=== PATIENT | female | born 1955 | race African-American/Black ===

== ENCOUNTER 2021-04-30 04:42 | Emergency (ER) | payer MEDICARE, MEDICAID ==
[~2021-04-30] VITALS: Ht 167.6 cm; Wt 99.8 kg
[2021-04-30] MEDS ORDERED: SODIUM CHLORIDE 0.9% 500 ML IVB ONE (07:45)
[2021-04-30] MEDS ORDERED: LORazepam 2MG/ML-1ML VIAL IV ONE (07:45)
[2021-04-30] MEDS ORDERED: SODIUM CHLORIDE 0.9% 1,000 ML IV ONE (07:45)
[2021-04-30 08:02] LABS: Basophils # (auto) 0.1 10 ^3/uL (0-0.2); Basophils % (auto) 0.7 % (0.0-2.0); Eosinophils # (auto) 0.1 10 ^3/uL (0-0.8); Eosinophils % (auto) 1.4 % (0.0-7.0); Hematocrit 41.7 % (36.0-46.0); Hemoglobin 14.1 g/dL (12.2-16.2); Lymphocytes % (auto) 32.3 % (10.0-50.0); Mean Corpuscular Hemoglobin 32.6 pg (28.0-32.0); Mean Corpuscular Hgb Conc. 33.9 g/dL (32.0-36.0); Mean Corpuscular Volume 96.1 fL (80.0-100.0); Monocytes # (auto) 0.7 10 ^3/uL (0-1.3); Monocytes % (auto) 7.2 % (0.0-12.0); Neutrophils # (auto) 5.3 10 ^3/uL (1.6-8.6); Neutrophils % (auto) 58.4 % (37.0-80.0); Nucleated Red Blood Cells % 0.1 %; Red Blood Cells 4.34 10^6/uL (4.0-5.20); White Blood Cell 9.2 10^3/uL (4.4-10.8)
[2021-04-30 08:15] LABS: Albumin 3.6 g/dL (3.4-5.0); Anion Gap 10 (5-15); Blood Urea Nitrogen 17 mg/dL (7-18); Carbon Dioxide 19 mmol/L (21-32); Chloride 114 mmol/L (98-107); Glucose 98 mg/dL (74-106); Magnesium 2.4 mg/dL (1.6-2.6); Potassium 3.6 mmol/L (3.5-5.1); Sodium 143 mmol/L (136-145)
[2021-04-30 08:22] LABS: Alanine Aminotransferase 23 U/L (13-56); Alkaline Phosphatase 114 U/L (45-117); Aspartate Aminotransferase 13 U/L (15-37); Bilirubin, Total 0.8 mg/dL (0.2-1.0); GFR African American 111 mL/min; GFR Non-African American 92 mL/min; Total Protein 7.7 g/dL (6.4-8.2)
[2021-04-30 11:00] VITALS: BP 152/80
[2021-04-30] MEDS ORDERED: FUROSEMIDE 40 MG/4 ML VIAL IV ONE (11:45)
[2021-04-30] MEDS ORDERED: SPIRONOLACTONE 25 MG TAB PO ONE (11:45)
== END 2021-04-30 12:12 | disposition left against medical advice (07) ==
LOC: ER 04:42 → EDBD 04:42 → ER 12:12
DX: G40.909 Epilepsy, unspecified, not intractable, without status epilepticus (principal); J90 Pleural effusion, not elsewhere classified; I10 Essential (primary) hypertension; R09.89 Other specified symptoms and signs involving the circulatory and respiratory systems; I11.0 Hypertensive heart disease with heart failure; I50.9 Heart failure, unspecified; J44.9 Chronic obstructive pulmonary disease, unspecified; Z20.822 Contact with and (suspected) exposure to COVID-19
CPT/HCPCS: 36415; 70450; 71045; 80053; 80320; 83735; 83880; 84443; 84484; 85025; 87426; 93005; 96365; 96375; 99285; J1940; J1953; J2060; J7060

== ENCOUNTER 2021-10-17 04:12 | Inpatient (IN) | payer MEDICARE, MEDICAID ==
[~2021-10-17] VITALS: Ht 172.7 cm; Wt 123.3 kg
[2021-10-17] MEDS ORDERED: methylPREDNISolone SOD SUCC 125 MG/2 ML VL IV ONE ×2 (05:30→11:45)
[2021-10-17 06:13] LABS: Hematocrit 43.6 % (36.0-46.0); Hemoglobin 14.9 g/dL (12.2-16.2); Mean Corpuscular Hemoglobin 32.7 pg (28.0-32.0); Mean Corpuscular Hgb Conc. 34.1 g/dL (32.0-36.0); Mean Corpuscular Volume 96.1 fL (80.0-100.0); Red Blood Cells 4.54 10^6/uL (4.0-5.20); Red Cell Distribution Width 13.6 % (11.8-14.3); White Blood Cell 4.4 10^3/uL (4.4-10.8)
[2021-10-17 06:14] LABS: Urine Bacteria NONE SEEN /hpf (None Seen); Urine Blood TRACE /uL (Negative); Urine Mucus FEW (None Seen); Urine Specific Gravity 1.027 (1.001-1.035); Urine WBC 1 /hpf (0 - 5)
[2021-10-17 06:27] LABS: Band Neutrophils % (manual) 0; Basophils % (manual) 0 (0.0-2.0); Blast Cells 0; Metamyelocytes % 0; Myelocytes % 0; Promyelocytes % 0
[2021-10-17] MEDS ORDERED: ALBUTEROL SULF 2.5 MG/0.5ML(0.5%) NEB SOLN NEB ONE (07:45)
[2021-10-17] MEDS ORDERED: IPRATROPIUM BROM 0.5 MG/2.5ML INH SOL NEB ONE ×2 (07:45→11:45)
[2021-10-17 07:59] LABS: Albumin 3.6 g/dL (3.4-5.0); Calcium 9.2 mg/dL (8.5-10.1)
[2021-10-17 08:01] LABS: BUN/Creatinine Ratio 19.5
[2021-10-17 08:05] LABS: Total Protein 7.6 g/dL (6.4-8.2)
[2021-10-17 08:12] LABS: Eosinophils % (manual) 3 (0-7); Lymphocytes % (manual) 21 (10.0-50.0); Monocytes % (manual) 13 (0-12)
[2021-10-17 08:13] LABS: Reactive Lymphocytes 12
[2021-10-17] MEDS ORDERED: cefTRIAXone 1GM/50ML D5W 50 ML IV ONE (09:15)
[2021-10-17] MEDS ORDERED: AZITHROMYCIN 500MG/ 250ML 250 ML IV ONE (09:15)
[2021-10-17] MEDS ORDERED: MORPHINE SULFATE INJECTION 2 MG/ML SYRG IV PRN ×2 (10:45→13:15)
[2021-10-17] MEDS ORDERED: NITROGLYCERIN 0.4 MG SL TAB SL PRN (10:45)
[2021-10-17] MEDS ORDERED: MONTELUKAST SODIUM 10 MG TAB PO ONE ×2 (11:45→13:15)
[2021-10-17] MEDS ORDERED: ONDANSETRON HCL 4 MG/2 ML VIAL IV PRN ×2 (11:45→13:15)
[2021-10-17] MEDS ORDERED: hydrALAZINE HCL 20 MG/ML VL IV PRN ×2 (11:45→13:15)
[2021-10-17] MEDS ORDERED: HYDROcodone-ACET 5/325MG TAB PO ONE ×2 (11:45→13:15)
[2021-10-17] MEDS ORDERED: BUDESONIDE (INHALATION) 0.5 MG/2 ML NEB NEB ONE (11:45)
[2021-10-17] MEDS: LORazepam 0.5 MG TAB PO PRN ×2 (13:11→22:30)
[2021-10-17] MEDS ORDERED: BENAZEPRIL HCL 10 MG TAB PO ONE (13:15)
[2021-10-17] MEDS ORDERED: DOCUSATE SOD 100 MG CAP PO PRN (13:15)
[2021-10-17] MEDS ORDERED: NIFEdipine ER 30 MG TAB PO ONE (13:15)
[2021-10-17] MEDS ORDERED: LORazepam 0.5 MG TAB PO PRN (13:15)
[2021-10-17] MEDS ORDERED: HYDROcodone-ACET 5/325MG TAB PO PRN (13:15)
[2021-10-17] MEDS ORDERED: THIAMINE 100mg/ml INJ (200mg/2ml VIAL) IV ONE (13:30)
[2021-10-17] MEDS ORDERED: MULTIPLE VITAMINS W/ MINERALS TAB PO ONE (13:30)
[2021-10-17] MEDS ORDERED: PANTOPRAZOLE 40 MG/10 ML VIAL INJ IV ONE (13:30)
[2021-10-17] MEDS ORDERED: FOLIC ACID 1 MG TAB PO ONE (13:30)
[2021-10-17] MEDS: IPRATROPIUM BROM 0.5 MG/2.5ML INH SOL NEB SCH ×4 (14:53→22:19)
[2021-10-17] MEDS: ALBUTEROL SULF 2.5 MG/0.5ML(0.5%) NEB SOLN NEB SCH ×4 (14:53→22:19)
[2021-10-17] MEDS: ACETYLCYSTEINE 10 %(100MG/ML) SOL 4ML NEB SCH ×2 (14:53→18:56)
[2021-10-17] MEDS ORDERED: LEVE500T32 PO (15:10)
[2021-10-17] MEDS ORDERED: FURO1TAB31 PO (15:10)
[2021-10-17] MEDS ORDERED: ALBU2TAB4 PO (15:10)
[2021-10-17] MEDS ORDERED: LOSA25TA38 PO (15:10)
[2021-10-17] MEDS ORDERED: LORA0.5T20 PO (15:12)
[2021-10-17] MEDS ORDERED: CITA-73 PO (15:12)
[2021-10-17] MEDS ORDERED: LATA0.0019 EACHEYE (15:12)
[2021-10-17] MEDS ORDERED: BRIM0.159 EACHEYE (15:12)
[2021-10-17] MEDS ORDERED: IPRIH INH (15:12)
[2021-10-17] MEDS: methylPREDNISolone SOD SUCC 40 MG/ML VL IV SCH ×2 (15:14→22:45)
[2021-10-17 17:48] VITALS: BP 159/98
[2021-10-17] MEDS: FUROSEMIDE 20 MG/2 ML VIAL IV SCH (17:51)
[2021-10-17] MEDS ORDERED: FUROSEMIDE 20 MG/2 ML VIAL IV SCH (18:00)
[2021-10-17] MEDS: HYDROcodone-ACET 5/325MG TAB PO PRN (18:02)
[2021-10-17 18:39] LABS: Magnesium 2.3 mg/dL (1.6-2.6)
[2021-10-17 18:56] LABS: INR 1.05 (0.9-1.15); Partial Thromboplastin Time 28.2 sec (23.6-33.0)
[2021-10-17 20:43] VITALS: BP 159/98
[2021-10-17] MEDS: LATANOPROST 0.005 % OPTH(EYE) SOL 2.5ML EACHEYE SCH (21:11)
[2021-10-17] MEDS: MONTELUKAST SODIUM 10 MG TAB PO SCH (21:12)
[2021-10-17] MEDS: levETIRAcetam 500 MG TAB PO SCH (21:12)
[2021-10-17] MEDS: ATORVASTATIN 20 MG TAB PO SCH (21:12)
[2021-10-17 22:00] VITALS: BP 155/89
[2021-10-17] MEDS: BRIMONIDINE 0.2% OPTH Soln 5ml EACHEYE SCH (22:00)
[2021-10-17] MEDS ORDERED: ATORVASTATIN 20 MG TAB PO SCH (22:00)
[2021-10-17] MEDS ORDERED: MONTELUKAST SODIUM 10 MG TAB PO SCH (22:00)
[2021-10-17] MEDS: BUDESONIDE (INHALATION) 0.5 MG/2 ML NEB NEB SCH (22:19)
[2021-10-18] MEDS: ALBUTEROL SULF 2.5 MG/0.5ML(0.5%) NEB SOLN NEB SCH ×6 (02:20→22:37)
[2021-10-18] MEDS: IPRATROPIUM BROM 0.5 MG/2.5ML INH SOL NEB SCH ×6 (02:20→22:37)
[2021-10-18 05:00] VITALS: BP 131/75
[2021-10-18 05:55] LABS: Basophils # (auto) 0 10 ^3/uL (0-0.2); Basophils % (auto) 0.1 % (0.0-2.0); Eosinophils # (auto) 0 10 ^3/uL (0-0.8); Hematocrit 41.1 % (36.0-46.0); Lymphocytes # (auto) 1.3 10 ^3/uL (0.4-5.4); Lymphocytes % (auto) 17.8 % (10.0-50.0); Mean Corpuscular Hemoglobin 32.3 pg (28.0-32.0); Mean Corpuscular Volume 94.8 fL (80.0-100.0); Monocytes # (auto) 0.4 10 ^3/uL (0-1.3); Monocytes % (auto) 5.9 % (0.0-12.0); Neutrophils # (auto) 5.5 10 ^3/uL (1.6-8.6); Neutrophils % (auto) 76.2 % (37.0-80.0); Nucleated Red Blood Cells % 0.2 %; Red Blood Cells 4.34 10^6/uL (4.0-5.20); Red Cell Distribution Width 13.2 % (11.8-14.3); White Blood Cell 7.3 10^3/uL (4.4-10.8)
[2021-10-18 06:09] LABS: INR 1.05 (0.9-1.15)
[2021-10-18 06:15] LABS: Potassium 4.1 mmol/L (3.5-5.1)
[2021-10-18 06:21] LABS: Albumin 3.3 g/dL (3.4-5.0); BUN/Creatinine Ratio 20.4; Bilirubin, Total 0.6 mg/dL (0.2-1.0); CRP High Sensitivity 0.59 mg/dL (< 0.3); Calcium 8.6 mg/dL (8.5-10.1); Magnesium 2.1 mg/dL (1.6-2.6); Phosphorus 2.2 mg/dL (2.5-4.90); Total Protein 7.2 g/dL (6.4-8.2)
[2021-10-18] MEDS: LORazepam 0.5 MG TAB PO PRN ×2 (06:21→14:24)
[2021-10-18] MEDS: methylPREDNISolone SOD SUCC 40 MG/ML VL IV SCH ×3 (06:30→21:56)
[2021-10-18] MEDS: FUROSEMIDE 20 MG/2 ML VIAL IV SCH ×2 (06:30→17:25)
[2021-10-18] MEDS: BUDESONIDE (INHALATION) 0.5 MG/2 ML NEB NEB SCH ×2 (07:44→20:19)
[2021-10-18] MEDS: ACETYLCYSTEINE 10 %(100MG/ML) SOL 4ML NEB SCH ×3 (07:45→20:01)
[2021-10-18 09:00] VITALS: BP_SYST 111; BP_SYST 129; BP_DIAS 60; BP_DIAS 70
[2021-10-18] MEDS ORDERED: MULTIPLE VITAMINS W/ MINERALS TAB PO SCH (10:00)
[2021-10-18] MEDS ORDERED: ENOXAPARIN SOD 40 MG/0.4 ML SYRINGE SC SCH (10:00)
[2021-10-18] MEDS ORDERED: CYANOCOBALAMIN 500 MCG TAB PO SCH (10:00)
[2021-10-18] MEDS ORDERED: BENAZEPRIL HCL 10 MG TAB PO SCH (10:00)
[2021-10-18] MEDS ORDERED: PANTOPRAZOLE 40 MG/10 ML VIAL INJ IV SCH (10:00)
[2021-10-18] MEDS ORDERED: FOLIC ACID 1 MG TAB PO SCH (10:00)
[2021-10-18] MEDS ORDERED: ASPirin 81 mg TAB PO SCH (10:00)
[2021-10-18] MEDS: AZITHROMYCIN 500MG/ 250ML 250 ML IV SCH (10:42)
[2021-10-18] MEDS: levETIRAcetam 500 MG TAB PO SCH ×2 (10:42→21:56)
[2021-10-18] MEDS: CHOLECALCIFEROL (VITD3) 2,000 UNIT CAP/TAB PO SCH (10:43)
[2021-10-18] MEDS: THIAMINE HCL 100 MG TAB PO SCH (10:43)
[2021-10-18] MEDS: NIFEdipine ER 30 MG TAB PO SCH (10:44)
[2021-10-18] MEDS: ASPirin 81 mg TAB PO SCH (10:45)
[2021-10-18] MEDS: BRIMONIDINE 0.2% OPTH Soln 5ml EACHEYE SCH ×2 (10:54→22:00)
[2021-10-18] MEDS: ENOXAPARIN SOD 40 MG/0.4 ML SYRINGE SC SCH (10:55)
[2021-10-18] MEDS: HYDROcodone-ACET 5/325MG TAB PO PRN (11:30)
[2021-10-18] MEDS: PROMETHAZINE-DM 5 ML ORAL SYRUP PO PRN ×2 (11:30→22:00)
[2021-10-18] MEDS: LACTULOSE 20Gm/30ML SOLN PO PRN (12:59)
[2021-10-18 13:00] VITALS: BP 130/65
[2021-10-18 13:10] LABS: Amphetamine Screen, Urine NEGATIVE (NEGATIVE); Barbiturate Scree,Urine NEGATIVE (NEGATIVE); Benzodiazephine Screen, Urine NEGATIVE (NEGATIVE); Cannabinoid Screen, Urine POSITIVE (NEGATIVE); Cocaine Screen, Urine NEGATIVE (NEGATIVE); Opiate Scree,Urine POSITIVE (NEGATIVE); Phencyclidine Screen, Urine NEGATIVE (NEGATIVE)
[2021-10-18] MEDS ORDERED: cefTRIAXone 1GM/50ML D5W 50 ML IV ONE (15:00)
[2021-10-18 17:00] VITALS: BP 123/63
[2021-10-18] MEDS: FAMOTIDINE 20 MG TAB PO SCH (21:57)
[2021-10-18] MEDS: MONTELUKAST SODIUM 10 MG TAB PO SCH (21:57)
[2021-10-18] MEDS: ATORVASTATIN 20 MG TAB PO SCH (21:57)
[2021-10-18 22:00] VITALS: BP 116/58
[2021-10-18] MEDS: LATANOPROST 0.005 % OPTH(EYE) SOL 2.5ML EACHEYE SCH (22:13)
[2021-10-19] MEDS: IPRATROPIUM BROM 0.5 MG/2.5ML INH SOL NEB SCH ×6 (03:02→21:52)
[2021-10-19] MEDS: ALBUTEROL SULF 2.5 MG/0.5ML(0.5%) NEB SOLN NEB SCH ×6 (03:02→21:51)
[2021-10-19 05:00] VITALS: BP 131/70
[2021-10-19 05:12] LABS: Basophils # (auto) 0 10 ^3/uL (0-0.2); Basophils % (auto) 0.3 % (0.0-2.0); Eosinophils # (auto) 0 10 ^3/uL (0-0.8); Hematocrit 41.1 % (36.0-46.0); Hemoglobin 13.6 g/dL (12.2-16.2); Lymphocytes # (auto) 1.5 10 ^3/uL (0.4-5.4); Lymphocytes % (auto) 13.5 % (10.0-50.0); Mean Corpuscular Hemoglobin 31.4 pg (28.0-32.0); Mean Corpuscular Volume 95.1 fL (80.0-100.0); Monocytes # (auto) 0.6 10 ^3/uL (0-1.3); Monocytes % (auto) 5.7 % (0.0-12.0); Neutrophils # (auto) 9.1 10 ^3/uL (1.6-8.6); Neutrophils % (auto) 80.5 % (37.0-80.0); Nucleated Red Blood Cells % 0.1 %; Red Blood Cells 4.32 10^6/uL (4.0-5.20); Red Cell Distribution Width 13.4 % (11.8-14.3); White Blood Cell 11.3 10^3/uL (4.4-10.8)
[2021-10-19] MEDS: LORazepam 0.5 MG TAB PO PRN ×2 (05:26→13:26)
[2021-10-19 05:37] LABS: BUN/Creatinine Ratio 34.5; Calcium 9.1 mg/dL (8.5-10.1); Potassium 3.8 mmol/L (3.5-5.1)
[2021-10-19] MEDS: ACETYLCYSTEINE 10 %(100MG/ML) SOL 4ML NEB SCH (06:39)
[2021-10-19] MEDS: FUROSEMIDE 20 MG/2 ML VIAL IV SCH ×2 (07:05→17:21)
[2021-10-19] MEDS: methylPREDNISolone SOD SUCC 40 MG/ML VL IV SCH ×3 (07:05→20:45)
[2021-10-19] MEDS: BRIMONIDINE 0.2% OPTH Soln 5ml EACHEYE SCH ×2 (08:55→21:02)
[2021-10-19] MEDS: cefTRIAXone 1GM/50ML D5W 50 ML IV SCH (08:55)
[2021-10-19] MEDS: levETIRAcetam 500 MG TAB PO SCH ×2 (08:56→20:45)
[2021-10-19] MEDS: THIAMINE HCL 100 MG TAB PO SCH (08:56)
[2021-10-19] MEDS: FAMOTIDINE 20 MG TAB PO SCH ×2 (08:56→20:46)
[2021-10-19] MEDS: ASPirin 81 mg TAB PO SCH (08:56)
[2021-10-19] MEDS: NIFEdipine ER 30 MG TAB PO SCH (08:57)
[2021-10-19] MEDS: CHOLECALCIFEROL (VITD3) 2,000 UNIT CAP/TAB PO SCH (08:57)
[2021-10-19] MEDS: ENOXAPARIN SOD 40 MG/0.4 ML SYRINGE SC SCH (08:57)
[2021-10-19 09:00] VITALS: BP 137/79
[2021-10-19] MEDS: HYDROcodone-ACET 5/325MG TAB PO PRN (09:09)
[2021-10-19] MEDS: AZITHROMYCIN 500MG/ 250ML 250 ML IV SCH (10:38)
[2021-10-19] MEDS: BUDESONIDE (INHALATION) 0.5 MG/2 ML NEB NEB SCH ×2 (10:44→21:51)
[2021-10-19] MEDS ORDERED: POTASSIUM EFFERVESENT TAB 25 MEQ PO ONE (12:30)
[2021-10-19] MEDS ORDERED: ERGOCALCIFEROL 50,000 UNIT(1.25MG) CAP PO ONE (12:30)
[2021-10-19 13:00] VITALS: BP 132/61
[2021-10-19 17:00] VITALS: BP 144/82
[2021-10-19] MEDS: LATANOPROST 0.005 % OPTH(EYE) SOL 2.5ML EACHEYE SCH (20:45)
[2021-10-19] MEDS: ATORVASTATIN 20 MG TAB PO SCH (20:45)
[2021-10-19] MEDS: MONTELUKAST SODIUM 10 MG TAB PO SCH (20:46)
[2021-10-19] MEDS: PROMETHAZINE W/CODEINE 5 ML ORAL SYRUP PO PRN (20:46)
[2021-10-19 22:00] VITALS: BP 105/52
[2021-10-20] MEDS: IPRATROPIUM BROM 0.5 MG/2.5ML INH SOL NEB SCH ×6 (01:53→22:02)
[2021-10-20] MEDS: ALBUTEROL SULF 2.5 MG/0.5ML(0.5%) NEB SOLN NEB SCH ×6 (01:53→22:02)
[2021-10-20 05:00] VITALS: BP 130/78
[2021-10-20] MEDS: FUROSEMIDE 20 MG/2 ML VIAL IV SCH (06:27)
[2021-10-20] MEDS: methylPREDNISolone SOD SUCC 40 MG/ML VL IV SCH (06:27)
[2021-10-20] MEDS: LORazepam 0.5 MG TAB PO PRN ×2 (06:28→21:00)
[2021-10-20] MEDS: BUDESONIDE (INHALATION) 0.5 MG/2 ML NEB NEB SCH ×2 (06:31→22:02)
[2021-10-20 09:14] VITALS: BP 157/103
[2021-10-20] MEDS: THIAMINE HCL 100 MG TAB PO SCH (09:39)
[2021-10-20] MEDS: cefTRIAXone 1GM/50ML D5W 50 ML IV SCH (09:39)
[2021-10-20] MEDS: ASPirin 81 mg TAB PO SCH (09:39)
[2021-10-20] MEDS: AZITHROMYCIN 500MG/ 250ML 250 ML IV SCH (09:39)
[2021-10-20] MEDS: BRIMONIDINE 0.2% OPTH Soln 5ml EACHEYE SCH ×2 (09:39→23:22)
[2021-10-20] MEDS: NIFEdipine ER 30 MG TAB PO SCH (09:40)
[2021-10-20] MEDS: CHOLECALCIFEROL (VITD3) 2,000 UNIT CAP/TAB PO SCH (09:40)
[2021-10-20] MEDS: levETIRAcetam 500 MG TAB PO SCH ×2 (09:40→23:22)
[2021-10-20] MEDS: FAMOTIDINE 20 MG TAB PO SCH ×2 (09:40→23:23)
[2021-10-20] MEDS: ENOXAPARIN SOD 40 MG/0.4 ML SYRINGE SC SCH (09:41)
[2021-10-20] MEDS ORDERED: predniSONE 20 MG TAB PO ONE (10:15)
[2021-10-20] MEDS ORDERED: ARTIFICIAL TEARS 15ml EACHEYE PRN (10:30)
[2021-10-20] MEDS: NICOTINE 21MG/24 HR TOPICAL PATCH TD SCH (11:41)
[2021-10-20] MEDS: PROMETHAZINE W/CODEINE 5 ML ORAL SYRUP PO PRN (11:42)
[2021-10-20 13:00] VITALS: BP 151/78
[2021-10-20] MEDS: ACETYLCYSTEINE 10 %(100MG/ML) SOL 4ML NEB SCH ×3 (14:41→22:02)
[2021-10-20] MEDS: HYDROcodone-ACET 5/325MG TAB PO PRN (16:37)
[2021-10-20 17:00] VITALS: BP 120/74
[2021-10-20 22:00] VITALS: BP 136/78
[2021-10-20] MEDS ORDERED: NICOTINE 21MG/24 HR TOPICAL PATCH TD SCH (22:00)
[2021-10-20] MEDS: ATORVASTATIN 20 MG TAB PO SCH (23:22)
[2021-10-20] MEDS: LATANOPROST 0.005 % OPTH(EYE) SOL 2.5ML EACHEYE SCH (23:22)
[2021-10-20] MEDS: MONTELUKAST SODIUM 10 MG TAB PO SCH (23:23)
[2021-10-20] MEDS: LACTULOSE 20Gm/30ML SOLN PO PRN (23:41)
[2021-10-21] VITALS (7 sets, daily range): BP systolic 134–157; BP diastolic 65–103
[2021-10-21] MEDS: IPRATROPIUM BROM 0.5 MG/2.5ML INH SOL NEB SCH ×6 (02:06→21:13)
[2021-10-21] MEDS: ALBUTEROL SULF 2.5 MG/0.5ML(0.5%) NEB SOLN NEB SCH ×6 (02:06→21:13)
[2021-10-21] MEDS: ACETYLCYSTEINE 10 %(100MG/ML) SOL 4ML NEB SCH ×6 (02:06→21:13)
[2021-10-21] MEDS: PROMETHAZINE W/CODEINE 5 ML ORAL SYRUP PO PRN (04:45)
[2021-10-21] MEDS: LORazepam 0.5 MG TAB PO PRN ×2 (06:37→19:14)
[2021-10-21] MEDS: ASPirin 81 mg TAB PO SCH (09:02)
[2021-10-21] MEDS: BRIMONIDINE 0.2% OPTH Soln 5ml EACHEYE SCH ×2 (09:02→21:53)
[2021-10-21] MEDS: predniSONE 20 MG TAB PO SCH (09:02)
[2021-10-21] MEDS: FUROSEMIDE 40 MG TAB PO SCH (09:03)
[2021-10-21] MEDS: levETIRAcetam 500 MG TAB PO SCH ×2 (09:03→21:53)
[2021-10-21] MEDS: FAMOTIDINE 20 MG TAB PO SCH ×2 (09:03→21:54)
[2021-10-21] MEDS: ENOXAPARIN SOD 40 MG/0.4 ML SYRINGE SC SCH (09:04)
[2021-10-21] MEDS: CHOLECALCIFEROL (VITD3) 2,000 UNIT CAP/TAB PO SCH (09:04)
[2021-10-21] MEDS: AZITHROMYCIN 250 MG TAB PO SCH (09:04)
[2021-10-21] MEDS: NIFEdipine ER 30 MG TAB PO SCH (09:04)
[2021-10-21] MEDS: NICOTINE 21MG/24 HR TOPICAL PATCH TD SCH (09:05)
[2021-10-21] MEDS: BUDESONIDE (INHALATION) 0.5 MG/2 ML NEB NEB SCH ×2 (10:49→17:39)
[2021-10-21] MEDS: guaiFENesin-CODEINE Liq 5 ML UD GT PRN (19:25)
[2021-10-21] MEDS: ATORVASTATIN 20 MG TAB PO SCH (21:53)
[2021-10-21] MEDS: LATANOPROST 0.005 % OPTH(EYE) SOL 2.5ML EACHEYE SCH (21:53)
[2021-10-21] MEDS: MONTELUKAST SODIUM 10 MG TAB PO SCH (21:55)
[2021-10-22] MEDS: ALBUTEROL SULF 2.5 MG/0.5ML(0.5%) NEB SOLN NEB SCH ×6 (01:46→21:43)
[2021-10-22] MEDS: ACETYLCYSTEINE 10 %(100MG/ML) SOL 4ML NEB SCH ×5 (01:46→21:44)
[2021-10-22] MEDS: IPRATROPIUM BROM 0.5 MG/2.5ML INH SOL NEB SCH ×6 (01:46→21:44)
[2021-10-22] MEDS: guaiFENesin-CODEINE Liq 5 ML UD GT PRN ×2 (04:15→08:43)
[2021-10-22 05:00] VITALS: BP 136/82
[2021-10-22] MEDS: DOCUSATE SOD 100 MG CAP PO PRN (06:13)
[2021-10-22 08:00] VITALS: BP 143/81
[2021-10-22] MEDS: LORazepam 0.5 MG TAB PO PRN ×2 (08:43→22:57)
[2021-10-22] MEDS: LACTULOSE 20Gm/30ML SOLN PO PRN ×2 (08:43→17:27)
[2021-10-22] MEDS: ASPirin 81 mg TAB PO SCH (08:59)
[2021-10-22] MEDS: predniSONE 20 MG TAB PO SCH (08:59)
[2021-10-22] MEDS: FAMOTIDINE 20 MG TAB PO SCH ×2 (08:59→21:25)
[2021-10-22] MEDS: BRIMONIDINE 0.2% OPTH Soln 5ml EACHEYE SCH ×2 (08:59→21:24)
[2021-10-22] MEDS: levETIRAcetam 500 MG TAB PO SCH ×2 (08:59→21:24)
[2021-10-22 09:00] VITALS: BP 155/84
[2021-10-22] MEDS: CHOLECALCIFEROL (VITD3) 2,000 UNIT CAP/TAB PO SCH (09:00)
[2021-10-22] MEDS: AZITHROMYCIN 250 MG TAB PO SCH (09:00)
[2021-10-22] MEDS: NICOTINE 21MG/24 HR TOPICAL PATCH TD SCH (09:01)
[2021-10-22] MEDS: ENOXAPARIN SOD 40 MG/0.4 ML SYRINGE SC SCH (09:01)
[2021-10-22] MEDS: NIFEdipine ER 30 MG TAB PO SCH (09:37)
[2021-10-22] MEDS: FUROSEMIDE 40 MG TAB PO SCH (09:37)
[2021-10-22] MEDS: BUDESONIDE (INHALATION) 0.5 MG/2 ML NEB NEB SCH ×2 (10:36→21:43)
[2021-10-22 13:00] VITALS: BP 144/89
[2021-10-22] MEDS ORDERED: levoFLOXacin 500 MG TAB PO ONE (13:15)
[2021-10-22 17:00] VITALS: BP 130/72
[2021-10-22] MEDS: LATANOPROST 0.005 % OPTH(EYE) SOL 2.5ML EACHEYE SCH (21:24)
[2021-10-22] MEDS: MONTELUKAST SODIUM 10 MG TAB PO SCH (21:25)
[2021-10-22] MEDS: ATORVASTATIN 20 MG TAB PO SCH (21:25)
[2021-10-22 22:00] VITALS: BP 149/80
[2021-10-22] MEDS ORDERED: AMOXICILLIN/CLAVUL 875 MG TAB PO SCH (22:00)
[2021-10-23] MEDS: ALBUTEROL SULF 2.5 MG/0.5ML(0.5%) NEB SOLN NEB SCH ×4 (01:58→19:20)
[2021-10-23] MEDS: ACETYLCYSTEINE 10 %(100MG/ML) SOL 4ML NEB SCH ×4 (01:58→19:20)
[2021-10-23] MEDS: IPRATROPIUM BROM 0.5 MG/2.5ML INH SOL NEB SCH ×4 (01:58→19:20)
[2021-10-23 05:00] VITALS: BP 144/86
[2021-10-23] MEDS: guaiFENesin-CODEINE Liq 5 ML UD PO PRN ×2 (05:11→09:40)
[2021-10-23] MEDS: BUDESONIDE (INHALATION) 0.5 MG/2 ML NEB NEB SCH ×2 (05:52→19:20)
[2021-10-23 08:00] VITALS: BP 141/93
[2021-10-23 08:28] VITALS: BP 141/93
[2021-10-23] MEDS: ASPirin 81 mg TAB PO SCH (09:03)
[2021-10-23] MEDS: BRIMONIDINE 0.2% OPTH Soln 5ml EACHEYE SCH ×2 (09:03→21:51)
[2021-10-23] MEDS: predniSONE 20 MG TAB PO SCH (09:04)
[2021-10-23] MEDS: FAMOTIDINE 20 MG TAB PO SCH ×2 (09:04→21:52)
[2021-10-23] MEDS: levETIRAcetam 500 MG TAB PO SCH ×2 (09:04→21:52)
[2021-10-23] MEDS: levoFLOXacin 500 MG TAB PO SCH (09:04)
[2021-10-23] MEDS: NIFEdipine ER 30 MG TAB PO SCH (09:05)
[2021-10-23] MEDS: CHOLECALCIFEROL (VITD3) 2,000 UNIT CAP/TAB PO SCH (09:05)
[2021-10-23] MEDS: ENOXAPARIN SOD 40 MG/0.4 ML SYRINGE SC SCH (09:05)
[2021-10-23] MEDS: NICOTINE 21MG/24 HR TOPICAL PATCH TD SCH (09:06)
[2021-10-23] MEDS: HYDROcodone-ACET 5/325MG TAB PO PRN ×2 (09:07→18:24)
[2021-10-23] MEDS: LORazepam 0.5 MG TAB PO PRN (10:37)
[2021-10-23 12:58] VITALS: BP 147/87
[2021-10-23 16:45] VITALS: BP 142/83
[2021-10-23] MEDS: ATORVASTATIN 20 MG TAB PO SCH (21:52)
[2021-10-23] MEDS: MONTELUKAST SODIUM 10 MG TAB PO SCH (21:52)
[2021-10-23 21:53] VITALS: BP 132/67
[2021-10-23] MEDS: LATANOPROST 0.005 % OPTH(EYE) SOL 2.5ML EACHEYE SCH (22:00)
[2021-10-24 05:00] VITALS: BP 143/74
[2021-10-24] MEDS: ALBUTEROL SULF 2.5 MG/0.5ML(0.5%) NEB SOLN NEB SCH ×3 (06:57→19:12)
[2021-10-24] MEDS: IPRATROPIUM BROM 0.5 MG/2.5ML INH SOL NEB SCH ×3 (06:57→19:12)
[2021-10-24] MEDS: ACETYLCYSTEINE 10 %(100MG/ML) SOL 4ML NEB SCH ×3 (06:58→19:12)
[2021-10-24] MEDS: LORazepam 0.5 MG TAB PO PRN ×2 (07:10→19:22)
[2021-10-24 09:43] VITALS: BP 153/90
[2021-10-24] MEDS: BRIMONIDINE 0.2% OPTH Soln 5ml EACHEYE SCH ×2 (09:49→22:16)
[2021-10-24] MEDS: levETIRAcetam 500 MG TAB PO SCH ×2 (09:50→22:17)
[2021-10-24] MEDS: predniSONE 20 MG TAB PO SCH (09:50)
[2021-10-24] MEDS: ASPirin 81 mg TAB PO SCH (09:50)
[2021-10-24] MEDS: NIFEdipine ER 30 MG TAB PO SCH (09:51)
[2021-10-24] MEDS: FAMOTIDINE 20 MG TAB PO SCH ×2 (09:51→22:17)
[2021-10-24] MEDS: levoFLOXacin 500 MG TAB PO SCH (09:51)
[2021-10-24] MEDS: CHOLECALCIFEROL (VITD3) 2,000 UNIT CAP/TAB PO SCH (09:52)
[2021-10-24] MEDS: NICOTINE 21MG/24 HR TOPICAL PATCH TD SCH (09:52)
[2021-10-24] MEDS: ENOXAPARIN SOD 40 MG/0.4 ML SYRINGE SC SCH (09:52)
[2021-10-24 10:06] VITALS: BP 151/84
[2021-10-24] MEDS: guaiFENesin-CODEINE Liq 5 ML UD PO PRN (11:55)
[2021-10-24] MEDS ORDERED: LORA0.5T20 PO (11:59)
[2021-10-24] MEDS ORDERED: ALB5IS NEB (11:59)
[2021-10-24] MEDS ORDERED: IPR002IS NEB (11:59)
[2021-10-24] MEDS ORDERED: NIC21P TD (11:59)
[2021-10-24] MEDS ORDERED: GUAI100S6 PO ×2 (12:36→12:37)
[2021-10-24] MEDS ORDERED: DEXT1SYP9 PO (12:39)
[2021-10-24] MEDS ORDERED: LEVO-28 PO (12:39)
[2021-10-24 14:37] VITALS: BP 140/86
[2021-10-24] MEDS: BUDESONIDE (INHALATION) 0.5 MG/2 ML NEB NEB SCH (19:12)
[2021-10-24] MEDS ORDERED: TEMAZEPAM 15 MG CAP PO PRN (21:15)
[2021-10-24 22:00] VITALS: BP 152/82
[2021-10-24] MEDS: LATANOPROST 0.005 % OPTH(EYE) SOL 2.5ML EACHEYE SCH (22:16)
[2021-10-24] MEDS: MONTELUKAST SODIUM 10 MG TAB PO SCH (22:17)
[2021-10-24] MEDS: ATORVASTATIN 20 MG TAB PO SCH (22:17)
[2021-10-24] MEDS: DOCUSATE SOD 100 MG CAP PO PRN (22:18)
[2021-10-25 05:00] VITALS: BP 151/86
[2021-10-25 05:51] LABS: Albumin 3.1 g/dL (3.4-5.0); Potassium 3.8 mmol/L (3.5-5.1)
[2021-10-25 05:57] LABS: BUN/Creatinine Ratio 32.9; Calcium 8.8 mg/dL (8.5-10.1)
[2021-10-25 06:03] LABS: Bilirubin, Total 0.7 mg/dL (0.2-1.0); Total Protein 6.4 g/dL (6.4-8.2)
[2021-10-25] MEDS: IPRATROPIUM BROM 0.5 MG/2.5ML INH SOL NEB SCH (07:09)
[2021-10-25] MEDS: ACETYLCYSTEINE 10 %(100MG/ML) SOL 4ML NEB SCH (07:10)
[2021-10-25] MEDS: ALBUTEROL SULF 2.5 MG/0.5ML(0.5%) NEB SOLN NEB SCH (07:10)
[2021-10-25] MEDS: LORazepam 0.5 MG TAB PO PRN (08:08)
[2021-10-25 09:00] VITALS: BP 153/87
[2021-10-25] MEDS: CHOLECALCIFEROL (VITD3) 2,000 UNIT CAP/TAB PO SCH (09:44)
[2021-10-25] MEDS: BRIMONIDINE 0.2% OPTH Soln 5ml EACHEYE SCH (09:44)
[2021-10-25] MEDS: ENOXAPARIN SOD 40 MG/0.4 ML SYRINGE SC SCH (09:44)
[2021-10-25] MEDS: predniSONE 20 MG TAB PO SCH (09:44)
[2021-10-25] MEDS: ASPirin 81 mg TAB PO SCH (09:44)
[2021-10-25] MEDS: FAMOTIDINE 20 MG TAB PO SCH (09:44)
[2021-10-25] MEDS: levoFLOXacin 500 MG TAB PO SCH (09:44)
[2021-10-25] MEDS: NICOTINE 21MG/24 HR TOPICAL PATCH TD SCH (09:45)
[2021-10-25] MEDS: NIFEdipine ER 30 MG TAB PO SCH (09:45)
[2021-10-25] MEDS: levETIRAcetam 500 MG TAB PO SCH (09:45)
[2021-10-25] MEDS ORDERED: CHOL1CAP47 PO (09:53)
[2021-10-25] MEDS: BUDESONIDE (INHALATION) 0.5 MG/2 ML NEB NEB SCH (10:36)
== END 2021-10-25 13:11 | disposition home health service (06) | DRG 194 ==
LOC: ER 04:12 → TELE 10:32 → TELE-EAST 12:34 → EAST 10-22 17:41
PROVIDERS: ADMIT Hospitalist; ATTEND Internal Medicine
DX: I11.0 Hypertensive heart disease with heart failure (principal); N17.0 Acute kidney failure with tubular necrosis; J96.01 Acute respiratory failure with hypoxia; J44.0 Chronic obstructive pulmonary disease with (acute) lower respiratory infection; J44.1 Chronic obstructive pulmonary disease with (acute) exacerbation; J45.901 Unspecified asthma with (acute) exacerbation; J84.9 Interstitial pulmonary disease, unspecified; F10.10 Alcohol abuse, uncomplicated; N39.0 Urinary tract infection, site not specified; I50.33 Acute on chronic diastolic (congestive) heart failure; G40.909 Epilepsy, unspecified, not intractable, without status epilepticus; H40.9 Unspecified glaucoma; J20.9 Acute bronchitis, unspecified; B95.2 Enterococcus as the cause of diseases classified elsewhere; E55.9 Vitamin D deficiency, unspecified; E66.01 Morbid (severe) obesity due to excess calories; E78.5 Hyperlipidemia, unspecified; F12.90 Cannabis use, unspecified, uncomplicated; F17.200 Nicotine dependence, unspecified, uncomplicated; F41.9 Anxiety disorder, unspecified; J98.11 Atelectasis; T38.0X5A Adverse effect of glucocorticoids and synthetic analogues, initial encounter; Z20.822 Contact with and (suspected) exposure to COVID-19; F32.A Depression, unspecified; Y92.89 Other specified places as the place of occurrence of the external cause; Z68.41 Body mass index [BMI] 40.0-44.9, adult; Z88.5 Allergy status to narcotic agent; Z88.0 Allergy status to penicillin; Z88.8 Allergy status to other drugs, medicaments and biological substances; Z71.6 Tobacco abuse counseling
CPT/HCPCS: 36415; 36600; 71045; 71250; 80048; 80053; 80061; 80307; 81001; 82306; 82728; 82805; 83036; 83605; 83615; 83690; 83735; 83880; 84100; 84443; 84484; 85007; 85025; 85027; 85379; 85610; 85652; 85730; 86141; 87040; 87070; 87081; 87086; 87088; 87186; 87205; 93005; 93306; 94640; 96365; 96368; 96375; 99291; C9113; G0378; J0696